=== PATIENT | female | born 1975 | race Caucasian/White ===

== ENCOUNTER 2022-10-26 20:17 | Emergency (ER) | payer MEDICAID ==
[~2022-10-26] VITALS: Ht 162.6 cm; Wt 77.3 kg
[2022-10-26 20:23] VITALS: BP 133/80
[2022-10-26] MEDS ORDERED: HYDROcodone/acetaminophen 10/325mg tab PO ONE (21:20)
[2022-10-26] MEDS ORDERED: cyclobenzaprine 10mg tablet PO ONE (21:20)
[2022-10-26] MEDS ORDERED: ketorolac trometh inj. 60 MG/2 ML VIAL IM ONE (21:20)
[2022-10-26] MEDS ORDERED: CYCL-1 PO (22:13)
[2022-10-26] MEDS ORDERED: NAPR-56 PO (22:13)
== END 2022-10-26 22:38 | disposition home or self-care (01) ==
LOC: ER 20:17
DX: M62.838 Other muscle spasm (principal); F17.200 Nicotine dependence, unspecified, uncomplicated; F12.90 Cannabis use, unspecified, uncomplicated; Z88.1 Allergy status to other antibiotic agents
CPT/HCPCS: 72125; 96372; 99285; J1885